=== PATIENT | female | born 1925 | race Caucasian/White ===

== ENCOUNTER 2016-12-05 14:35 | Inpatient (IN) | payer MEDICARE, MEDICAID ==
[2016-12-05 15:33] LABS: Bilirubin Negative (Negative); Blood, Urine Trace (Negative); Glucose, Urine (Dipstick) Negative (Negative); Ketone, Urine Trace mg/dL (Negative); Protein, Urine (Dipstick) Trace mg/dL (Neg-Trace)
[2016-12-05 15:34] LABS: #Lymphocytes 1.3 thou/uL (1.20-3.40); #Monocytes 0.9 thou/uL (0.11-0.59); #Neutrophils 8.9 thou/uL (1.40-6.50); %Basophils 0.3 % (0.0-1.0); %Eosinophils 0.3 % (0.0-10.0); %Lymphocytes 11.6 % (21.0-51.0); %Monocytes 7.8 % (0.0-10.0); Hematocrit 34.9 % (36.0-47.0); Mean Platelet Volume 9.3 fL (7.4-10.4); White Blood Cell (WBC) Count 11.1 thou/uL (4.8-10.8)
[2016-12-05 15:34] LABS: Nitrite Negative (Negative)
[2016-12-05 15:59] LABS: Bacteria/HPF 4+ HPF (None Seen); RBC/HPF 0-3 HPF (0-3); Squamous Epithelial 0-3 HPF (0-3)
--- NOTE | 2016-12-05 16:11 | RAD ---
AP VIEW CHEST 12/05/16 HISTORY: Altered mental status. AP view chest obtained on 12/05/16. Comparison made to previous exam from 08/14/14. AP view chest demonstrates sternotomy wires seen. Dual lead intracardiac defibrillator seen. Previou sly visualized right upper lobe opacity has resolved. No evidence of residual pneumonia seen. Some a reas of scar seen in the left lung base. IMPRESSION: No evidence of active intrathoracic disease seen. POS: H
[2016-12-05 16:30] LABS: ALT (SGPT) 17 U/L (8-55); AST (SGOT) 17 U/L (5-34); Alkaline Phosphatase 48 U/L (40-150); Anion Gap 14 mmol/L (10-20); BUN (Urea Nitrogen) 56 mg/dL (9.8-20.1); Bilirubin, Total 0.6 mg/dL (0.2-1.2); Calc. Creatinine Clearance 0 mL/min (70-130); Calcium 7.8 mg/dL (7.8-10.44); Carbon Dioxide 26 mmol/L (23-31); Chloride 114 mmol/L (98-107); Estimated GFR-MDRD 33; Protein, Total 5.5 g/dL (6.0-8.3)
[2016-12-05] MEDS ORDERED: Piperacillin/Tazobactam 4.5 GM in Sodium Chloride 0.9% 100 ML IVPB SCH (16:45)
[2016-12-05] MEDS ORDERED: Ondansetron ODT 4 MG TAB SL PRN (18:50)
[2016-12-05] MEDS ORDERED: Acetaminophen 325 MG TAB PO PRN (18:50)
[2016-12-05] MEDS ORDERED: Ondansetron HCl/PF 4 MG/2 ML Vial IVP PRN (18:50)
[2016-12-05] MEDS ORDERED: cefTRIAXone\\ROCEPHIN 2 GM in Sodium Chloride 0.9% 100 ML IVPB SCH (20:00)
[2016-12-06] MEDS ORDERED: Acetaminophen 325 MG TAB PER TUBE PRN (10:00)
[2016-12-06] MEDS ORDERED: Milk Of Magnesia 30 ML UDCUP PO PRN (10:04)
[2016-12-06] MEDS: Dextrose 5 %-0.45 % NaCl 1,000 ML IV SCH (10:10)
[2016-12-06] MEDS ORDERED: Senokot S 8.6-50 MG TAB PO PRN (10:11)
[2016-12-06] MEDS: Carvedilol 6.25 MG TAB PER TUBE SCH ×2 (14:11→20:59)
[2016-12-06] MEDS ORDERED: Vancomycin HCl 1 GM in Premix Bag 1 BAG IVPB SCH (14:15)
[2016-12-06] MEDS: cefTRIAXone\\ROCEPHIN 2 GM in Sodium Chloride 0.9% 100 ML IVPB SCH (21:00)
[2016-12-07] MEDS: Dextrose 5 %-0.45 % NaCl 1,000 ML IV SCH ×2 (02:37→19:31)
[2016-12-07 05:14] LABS: Calcium 7.9 mg/dL (7.8-10.44); Chloride 116 mmol/L (98-107)
[2016-12-07 05:16] LABS: Anion Gap 13 mmol/L (10-20); Carbon Dioxide 22 mmol/L (23-31)
[2016-12-07 05:18] LABS: Calc. Creatinine Clearance 39 mL/min (70-130); Estimated GFR-MDRD 48
[2016-12-07 05:19] LABS: BUN (Urea Nitrogen) 46 mg/dL (9.8-20.1)
[2016-12-07 05:44] LABS: #Eosinphils 0.1 thou/uL (0.0-0.7); #Lymphocytes 0.8 thou/uL (1.20-3.40); #Monocytes 0.7 thou/uL (0.11-0.59); %Lymphocytes 9.9 % (21.0-51.0); Hematocrit 28.4 % (36.0-47.0); Mean Platelet Volume 10.1 fL (7.4-10.4); Red Blood Cell (RBC) Count 2.79 mill/uL (4.20-5.40); White Blood Cell (WBC) Count 7.6 thou/uL (4.8-10.8)
--- NOTE | 2016-12-07 06:45 | HP ---
DATE OF ADMISSION: 12/05/2016 CHIEF COMPLAINT: Change in mental status. HISTORY OF PRESENT ILLNESS: Ms. Guzman is an 89-year-old female with past medical histor y of PEG tube feeding, colon cancer, and CVA. The patient was found to have decreased mental status and usually, the patient was more alert and awake, but she was sleepy and lethargic compared to silvia jimenez. The patient also was noted to have a fever. The patient has been on tube feeding but not to lerating well. She did not have any vomiting. No cough or congestion, so EMS was called. EMS foun d the patient with a decreased mental status. She was responsive to painful stimuli only. The guillermo ent was brought to the emergency room where she was found to have possible UTI or sepsis. The patie nt received Levaquin, Zosyn, and vancomycin in the ER and also IV fluid bolus and [facility] PAST MEDICAL HISTORY: 1. History of colon cancer. 2. History of cerebrovascular accident. 3. Gastroesophageal reflux disease. 4. Hypertension. 5. Hyperlipidemia. PAST SURGICAL HISTORY: Status post colon resection, status post cholecystectomy, status post pacema ker and defibrillator placement, status post PEG tube placement. CURRENT MEDICATIONS: The patient is on Tylenol p.r.n., amiodarone 200 mg daily, aspirin 81 mg, Core g 6.25 mg t.i.d., Lasix 40 daily, magnesium hydroxide p.r.n., KCl 7.5 mL daily, ranitidine 150 mg b. i.d., Crestor 10 mg daily, Senokot p.r.n. ALLERGIES: NKDA. FAMILY HISTORY: Nothing contributory. SOCIAL HISTORY: [facility]. No history of smoking. No history of alc ohol. REVIEW OF SYSTEMS: Unable to obtain because of mental status of the patient. The patient is lethar gic, not very responsive, not communicative. PHYSICAL EXAMINATION: GENERAL: The patient is awake, not very alert, not responsive. VITAL SIGNS: Temperature 98, pulse 76, respirations 20, blood pressure 130/60. HEENT: Head is normocephalic, atraumatic. Pupils are equal and reactive to light. Nasopharynx is pale and dry. Hard and soft palate, no lesions. SKIN: Skin turgor decreased. NECK: Supple. No JVD. LUNGS: Breath sounds diminished bilaterally. Percussion dull bilaterally. No rales, no rhonchi. HEART: S1, S2 regular. ABDOMEN: Soft, no distention, no tenderness. Normal bowel sounds. RECTAL: Deferred. CENTRAL NERVOUS SYSTEM: The patient is awake, not very alert. Motor system, power 3-4/5 in all ext remities. Deep tendon reflexes 2+ bilaterally. Plantars are downgoing. Sensory intact. LABORATORY DATA AND X-RAY FINDINGS: CBC shows WBC 11, hemoglobin 11, hematocrit 35, platelets 138. Metabolic panel: Sodium 151, potassium 3.4, chloride 114, CO2 of 26, urea nitrogen 56, creatinine 1.4, glucose 174. Chest x-ray, no evidence of acute intrathoracic disease. EKG shows pacemaker rhy thm. ASSESSMENT: 1. Acute encephalopathy, metabolic. 2. Urinary tract infection, rule out sepsis. 3. Acute kidney injury. 4. Dehydration. 5. Hypokalemia. 6. Hypertension. 7. History of cerebrovascular accident. 8. History of colon cancer, status post colon resection. 9. PEG tube placement. 10. Status post ICD pacemaker placement. PLAN: 1. Vital signs q. 4 hours. 2. Activity: As tolerated. 3. Allergies: NKDA. 4. Diet: Tube feeding. 5. IV fluids D5 half at 80 mL per hour. 6. Rocephin 2 grams IV piggyback daily, Levaquin 750 IV piggyback daily. 7. Urine culture, blood cultures. 8. Intake and output. 9. KCl replacement. 10. The patient is DNR.
[2016-12-07] MEDS: Carvedilol 6.25 MG TAB PER TUBE SCH ×3 (09:22→20:55)
[2016-12-07] MEDS: Famotidine 20 MG TAB PER TUBE SCH (09:23)
[2016-12-07] MEDS: cefTRIAXone\\ROCEPHIN 2 GM in Sodium Chloride 0.9% 100 ML IVPB SCH (20:54)
[2016-12-08 05:32] LABS: #Eosinphils 0.2 thou/uL (0.0-0.7); #Lymphocytes 0.9 thou/uL (1.20-3.40); #Monocytes 0.7 thou/uL (0.11-0.59); #Neutrophils 5.1 thou/uL (1.40-6.50); %Basophils 0.6 % (0.0-1.0); %Eosinophils 2.3 % (0.0-10.0); %Lymphocytes 12.6 % (21.0-51.0); %Monocytes 10.1 % (0.0-10.0); Hematocrit 32.3 % (36.0-47.0); Mean Platelet Volume 9.6 fL (7.4-10.4); Red Blood Cell (RBC) Count 3.14 mill/uL (4.20-5.40); White Blood Cell (WBC) Count 6.9 thou/uL (4.8-10.8)
[2016-12-08 05:36] LABS: Anion Gap 11 mmol/L (10-20); BUN (Urea Nitrogen) 35 mg/dL (9.8-20.1); Calc. Creatinine Clearance 46 mL/min (70-130); Calcium 8.1 mg/dL (7.8-10.44); Carbon Dioxide 25 mmol/L (23-31); Chloride 115 mmol/L (98-107); Estimated GFR-MDRD 58
[2016-12-08] MEDS: Carvedilol 6.25 MG TAB PER TUBE SCH ×3 (09:54→20:31)
[2016-12-08] MEDS: Famotidine 20 MG TAB PER TUBE SCH (09:54)
[2016-12-08] MEDS: Dextrose 5 %-0.45 % NaCl 1,000 ML IV SCH ×2 (09:55→20:37)
--- NOTE | 2016-12-08 17:01 | PQF ---
CLINICAL DOCUMENTATION IMPROVEMENT CLARIFICATION FORM: ICD-10 Updated For continuity of documentation, please document condition throughout progress notes and discharge summary. Thank You. Dear : Tevin Date / Time: 12/08/16 @2803 Please exercise your independent, professional judgment in responding to the clarification form. Clinical indicators are provided on the bottom of this form for your review Please check appropriate box(s) to clarify if the following diagnosis has been ruled in our ruled out: UTI R/O SEPSIS [ ] Ruled in diagnosis [ ] Continue to treat [ ] Resolved [ y ] Ruled out diagnosis [ ] Cannot rule out diagnosis [ ] Other diagnosis ___uti [ ] Unable to determine Clinical Indicators - Signs / Symptoms / Labs. Results and Location in Medical Record ER RECORD: BP 101/44, TEMP 102.4(RECTAL) DX: SEPSIS. UTI H&P: DECREASED MENTAL STATUS FEVER ASSESS: UTI, RULE OUT SEPSIS RISKS: H&P: 89 YR OLD. HX OF PEG TUBE FEEDING, COLON CANCER, AND CVA. TREATMENT: ORDER 12/06: ROCEPHIN 2 GM IV 2100 (This form is maintained as a part of the permanent medical record) 2014 [employer]. All Rights Reserved Angélica Urbina RN, BSN [email or web address] Office: [phone] [facility]
[2016-12-08] MEDS: cefTRIAXone\\ROCEPHIN 2 GM in Sodium Chloride 0.9% 100 ML IVPB SCH (20:30)
[2016-12-09] MEDS: Famotidine 20 MG TAB PER TUBE SCH (10:13)
[2016-12-09] MEDS: Carvedilol 6.25 MG TAB PER TUBE SCH ×3 (10:15→21:03)
[2016-12-09] MEDS: Dextrose 5 %-0.45 % NaCl 1,000 ML IV SCH (10:15)
[2016-12-09 13:33] VITALS: BMI 27.1
[2016-12-09] MEDS: cefTRIAXone\\ROCEPHIN 2 GM in Sodium Chloride 0.9% 100 ML IVPB SCH (21:03)
[2016-12-10] MEDS: Dextrose 5 %-0.45 % NaCl 1,000 ML IV SCH ×2 (04:39→10:53)
[2016-12-10 07:48] VITALS: TEMP 98
[2016-12-10] MEDS ORDERED: Nitrofurantoin Monohyd/M-Cryst 100 MG CAP PER TUBE SCH (09:00)
[2016-12-10] MEDS: Carvedilol 6.25 MG TAB PER TUBE SCH ×2 (10:32→12:07)
[2016-12-10] MEDS: Famotidine 20 MG TAB PER TUBE SCH (10:32)
[2016-12-10 10:33] VITALS: BP 140/63
== END 2016-12-10 12:31 | DRG 689 ==
LOC: ERS 14:35 → 2SE 18:45
PROVIDERS: ADMIT Internal Medicine; ATTEND Internal Medicine
DX: N39.0 Urinary tract infection, site not specified (principal); G93.41 Metabolic encephalopathy; N17.9 Acute kidney failure, unspecified; I10 Essential (primary) hypertension; E87.6 Hypokalemia; Z86.73 Personal history of transient ischemic attack (TIA), and cerebral infarction without residual deficits; Z85.038 Personal history of other malignant neoplasm of large intestine; Z93.1 Gastrostomy status; K21.9 Gastro-esophageal reflux disease without esophagitis; Z95.810 Presence of automatic (implantable) cardiac defibrillator; E86.0 Dehydration; Z66 Do not resuscitate
CPT/HCPCS: 36415; 36416; 51701; 71010; 80048; 80053; 81003; 81015; 83605; 85025; 87040; 87077; 87086; 87149; 87186; 93005; 96361; 96365; 96367; 96375; A4216; A4353; J0696; J1956; J2543; J3370; J7050